=== PATIENT | male | born 1975 | race Caucasian/White ===

== ENCOUNTER 2018-07-04 07:31 | Emergency (ER) | payer OTHER ==
[2018-07-04 07:31] VITALS: BMI 27.9
[2018-07-04 07:39] VITALS: PULSE 67; RESP 18
[2018-07-04] MEDS ORDERED: Sodium Chloride 0.9% 1,000 ML IV STA (07:44)
--- NOTE | 2018-07-04 07:47 | ED PDOC ---
Arrival/HPI - General Chief Complaint: GI Problem Time Seen by Provider: 07/04/18 07:38 Historian: Patient - History of Present Illness Narrative History of Present Illness (Text): 07/04/18 07:43 Dieudonne Pop is a 43 year old male, with no significant past medical history, who presents to the Emergency department complaining of vomiting. Patient states he has been experiencing nausea with multiple episodes of vomiting and upper abdominal pain since 03:00 today. Patient states he felt fine the previous day and denies any changes in diet. Patient also denies any fever, chills, chest pain, shortness of breath, diarrhea, urinary symptoms, back pain, neck pain, headache, dizziness, or any other complaints. Time/Duration: 4-6 hours Symptom Onset: Gradual Symptom Course: Unchanged Activities at Onset: Light Context: Home Past Medical History - Provider Review Nursing Documentation Reviewed: Yes - Infectious Disease Hx of Infectious Diseases: None - Tetanus Immunization Tetanus Immunization: Unknown - Past Medical History Past Medical History: No Previous - HEENT Hx HEENT Disorder: No Hx Deafness: No - Psychiatric Hx Psychophysiologic Disorder: No Hx Anxiety: No Hx Bipolar Disorder: No Hx Depression: No Hx Emotional Abuse: No Hx Hallucinations: No Hx Panic Disorder: No Hx Post Traumatic Stress Disorder: No Hx Psychosis: No Hx Physical Abuse: No Hx Schizophrenia: No Hx Sexual Abuse: No Hx Substance Use: No - Past Surgical History Past Surgical History: No Previous - Anesthesia Hx Anesthesia: No Hx Anesthesia Reactions: No Hx Malignant Hyperthermia: No - Suicidal Assessment Feels Threatened In Home Enviroment: No Family/Social History - Physician Review Nursing Documentation Reviewed: Yes Family/Social History: Unknown Family HX Smoking Status: Never Smoked Hx Alcohol Use: Yes Frequency of alcohol use: Socially Hx Substance Use: No Hx Substance Use Treatment: No Allergies/Home Meds Allergies/Adverse Reactions: Allergies No Known Allergies Allergy (Verified 07/04/18 07:39) Review of Systems - Physician Review All systems were reviewed & negative as marked: Yes - Review of Systems Constitutional: Normal. absent: Fevers Eyes: Normal ENT: Normal Respiratory: Normal. absent: SOB, Cough Cardiovascular: Normal. absent: Chest Pain Gastrointestinal: Abdominal Pain, Nausea, Vomiting Genitourinary Male: Normal. absent: Dysuria, Frequency, Hematuria, Urinary Output Changes Musculoskeletal: Normal. absent: Back Pain, Neck Pain Skin: Normal. absent: Rash Neurological: Normal. absent: Headache, Dizziness Endocrine: Normal Hemo/Lymphatic: Normal Psychiatric: Normal Physical Exam Vital Signs Reviewed: Yes Vital Signs Temp Pulse Resp BP Pulse Ox 07/04/18 07:37 97.8 F 67 18 145/84 99 Temperature: Afebrile Blood Pressure: Normal Pulse: Regular Respiratory Rate: Normal Appearance: Positive for: Well-Appearing, Non-Toxic, Comfortable Pain Distress: None Mental Status: Positive for: Alert and Oriented X 3 - Systems Exam Head: Present: Atraumatic, Normocephalic Pupils: Present: PERRL Extroacular Muscles: Present: EOMI Conjunctiva: Present: Normal Mouth: Present: Moist Mucous Membranes Neck: Present: Normal Range of Motion Respiratory/Chest: Present: Clear to Auscultation, Good Air Exchange. No: Respiratory Distress, Accessory Muscle Use Cardiovascular: Present: Regular Rate and Rhythm, Normal S1, S2. No: Murmurs Abdomen: Present: Tenderness (Epigastric tenderness). No: Distention, Peritoneal Signs Back: Present: Normal Inspection Upper Extremity: Present: Normal Inspection. No: Cyanosis, Edema Lower Extremity: Present: Normal Inspection. No: Edema Neurological: Present: GCS=15, CN II-XII Intact, Speech Normal Skin: Present: Warm, Dry, Normal Color. No: Rashes Psychiatric: Present: Alert, Oriented x 3, Normal Insight, Normal Concentration Medical Decision Making ED Course and Treatment: 07/04/18 07:43 Impression: 43 year old male complaining of nausea, vomiting, and upper abdominal discomfort. in er pt noted to have gross hematemsis ro upper gi bleed Plan: -- EKG -- Labs, cardiac enzymes, lipase -- Urinalysis -- IV fluids -- Zofran -- Protonix -- Reassess and disposition Progress Notes: 07/04/18 07:41 Procedure: BEDSIDE ULTRASOUND - LIMITED Interpreted by the emergency provider Time: 07:41 Consent: Informed consent, after discussion of the risks, benefits, and alternatives to the procedure, was obtained. Timeout: A timeout to verify the correct patient, procedure, and site was performed. Indication: Abdominal pain, vomiting Structures/Organs Investigated: Gallbladder Interpretation: No acute processes. Post-procedure: Patient tolerated the procedure well with no immediate complications. 07/04/18 08:12 Reviewed EKG, NSR at [address]-segment elevations or depressions, no T-wave inversions, normal intervals. 07/04/18 08:36 On re-evaluation, pt states he feels better, abdominal pain has resolved. Vital signs stable. 07/04/18 08:42 Pt with gross, bloody emesis at bedside. Guaiac positive. Pt refuses rectal exam. Pt was offered admission to the hospital for further evaluation. Pt declines. Pt will sign out against medical advice. The patient declines admission, and wishes to leave the Emergency Department. This action is against my medical advice to the patient and the decision was made with informed refusal. The patient was told that admission is necessary and a full explanation of the rationale was given. The risks of leaving were explained to the patient and include, but are not limited to, worsening of known or currently unknown conditions, permanent disability and from undiagnosed or untreated conditions The patient has the capacity to make this informed decision and understands the clinical situation and my explanation of the risks of leaving. The patient voluntarily accepts these risks, and a signed AMA form documenting our conversation was obtained. The patient was given the opportunity to ask questions and reconsider. The patient was encouraged to return to the Emergency Department at any time for further care. 07/04/18 10:39 labs neg h/h stable. abd soft. pt with gross hememesis. i requestsed pt to state in hosptial. he refuses. explained risk of bleeding hemorrhage. states will return with worsening signs ama. - Lab Interpretations I have reviewed the lab results: Yes - EKG Interpretation Interpreted by ED Physician: Yes Type: 12 lead EKG - Scribe Statement The provider has reviewed the documentation as recorded by the Johnny Deluca Provider Scribe Attestation: All medical record entries made by the Scribelvia were at my direction and personally dictated by me. I have reviewed the chart and agree that the record accurately reflects my personal performance of the history, physical exam, medical decision making, and the department course for this patient. I have also personally directed, reviewed, and agree with the discharge instructions and disposition. Disposition/Present on Arrival - Present on Arrival Any Indicators Present on Arrival: No History of DVT/PE: No History of Uncontrolled Diabetes: No Urinary Catheter: No History of Decub. Ulcer: No History Surgical Site Infection Following: None - Disposition Have Diagnosis and Disposition been Completed?: Yes Diagnosis: Abdominal pain, GI bleed Disposition: AGAINST MEDICAL ADVICE Disposition Time: 09:00 Condition: UNKNOWN Discharge Instructions (ExitCare): Gastrointestinal Bleeding, Acute Abdomen (Belly Pain), Gastrointestinal Bleeding (DC), Leaving Against Medical Advice Additional Instructions: return to er with worsening symptoms or concerns. Prescriptions: Famotidine [Pepcid] 20 mg PO DAILY #20 tab Pantoprazole Sodium [Protonix] 40 mg PO DAILY #20 tablet.dr Referrals: [facility] [Outside] - Follow up with primary [facility] [place] - Follow up with primary Tiffany Stevenson DO [Primary Care Provider] - Follow up with primary Orville Da Silva MD [Medical Doctor] - Follow up with primary Forms: [employer] (Greenlandic)
[2018-07-04 08:23] LABS: BASO # 0.03 K/mm3 (0.0-2.0); BASO % 0.3 % (0.0-3.0); GRAN # 8.88 (1.4-6.5); GRAN % 85.3 % (50.0-68.0); HEMOGLOBIN 13.8 g/dL (14.0-18.0); LYMPH # 1.2 (1.2-3.4); LYMPH % 11.3 % (22.0-35.0); MEAN CELL VOLUME 86.4 fl (80.0-105.0); MEAN CORPUSCULAR HEMOGLOBIN 28.5 pg (25.0-35.0); MEAN CORPUSCULAR HGB CONC 32.9 g/dl (31.0-37.0); MEAN PLATELET VOLUME 9.6 fl (7.0-11.0); MONO # 0.3 (0.1-0.6); MONO % 3.1 % (1.0-6.0); RBC 4.85 10^6/uL (3.5-6.1); RED CELL DISTRIBUTION WIDTH 12.9 % (11.5-14.5); WHITE BLOOD COUNT 10.4 10^3/uL (4.5-11.0)
[2018-07-04 08:31] LABS: ALB/GLOB RATIO 1.3 (1.1-1.8); ALBUMIN 4.3 g/dL (3.0-4.8); ALT/SGPT 53 U/L (7-56); AST/SGOT 35 U/L (17-59); BLOOD UREA NITROGEN 14 mg/dL (7-21); GFR NON-AFRICAN AMERICAN > 60; LIPASE 91 U/L (23-300)
[2018-07-04 08:34] LABS: PARTIAL THROMBOPLASTIN TIME 28.2 Seconds (25.1-36.5); PROTHROMBIN TIME 11.5 SECONDS (9.4-12.5)
[2018-07-04 08:41] LABS: TROPONIN I < 0.01 ng/mL
[2018-07-04 09:07] VITALS: BP 140/81; TEMP 98; O2SAT 96
--- NOTE | 2018-07-04 17:47 | CARD ---
APPROVED REPORT Date of service: 07/04/2018 EKG Measurement Heart [id number] <Conclusion> Normal sinus rhythm Moderate voltage criteria for LVH, may be normal variant Borderline ECG
== END 2018-07-04 08:55 | disposition left against medical advice (07) ==
LOC: ED 07:31
DX: K92.2 Gastrointestinal hemorrhage, unspecified (principal); R10.10 Upper abdominal pain, unspecified
CPT/HCPCS: 80053; 82550; 83615; 83690; 83735; 84484; 85025; 85610; 85730; 93005; 96361; 96374; 96375; 99284; C9113; J2405; J7030